=== PATIENT | male | born 1950 | race Hispanic/Latino ===

== ENCOUNTER 2021-08-24 13:58 | Inpatient (IN) | payer OTHER ==
[~2021-08-24] VITALS: Ht 170.2 cm; Wt 105.7 kg
[2021-08-24 14:47] LABS: BASOPHILS % (AUTO) 0.6 % (0.0-5.0); EOSINOPHILS % (AUTO) 1.3 % (0.0-8.0); HEMATOCRIT 40.4 % (42-54); LYMPHOCYTES % (AUTO) 14.1 % (21.0-51.0); MEAN CORPUSCULAR HEMOGLOBIN 33.6 pg (27.0-33.0); MEAN CORPUSCULAR HGB CONC 35.4 g/dL (32.0-36.0); MEAN CORPUSCULAR VOLUME 95.1 fL (79-99); MONOCYTES % (AUTO) 10.4 % (3.0-13.0); PLATELET COUNT (AUTO) 93 K/uL (130-400); RED BLOOD CELL COUNT(AUTO) 4.25 MIL/uL (4.50-6.20); RED CELL DISTRIBUTION WIDTH 12.4 % (11.0-15.5); WHITE BLOOD COUNT (AUTO) 5.4 K/uL (4.8-10.8)
[2021-08-24 14:53] LABS: APPEARANCE,URINE Clear (CLEAR); BILIRUBIN,URINE Negative (NEGATIVE); COLOR,URINE Yellow (YELLOW); GLUCOSE, URINE (UA) Negative (NEGATIVE); KETONES,URINE Trace mg/dL (NEGATIVE); LEUKOCYTE ESTERASE ,URINE Trace (NEGATIVE); NITRATE,URINE Negative (NEGATIVE); OCCULT BLOOD,URINE Negative (NEGATIVE); PROTEIN,URINE POS 1+ mg/dL (NEGATIVE)
[2021-08-24 15:02] LABS: BACTERIA,URINE Rare /HPF (None Seen); RBC,URINE 0-1 /HPF (0-1); SQUAMOUS EPITHELIAL CELL,UR Rare /HPF (0-2); WBC,URINE 0-1 /HPF (0-1)
[2021-08-24 15:15] LABS: POTASSIUM 4.4 mmol/L (3.5-5.1)
[2021-08-24 15:20] LABS: BILIRUBIN,TOTAL 2.3 mg/dL (0.2-1.0); TOTAL PROTEIN, SERUM 8.5 g/dL (6.0-8.3)
[2021-08-24] MEDS ORDERED: MORPHINE 2 MG SYG IV PRN (19:30)
[2021-08-24] MEDS ORDERED: ACETAMINOPHEN 325 MG TAB PO PRN ×2 (19:30)
[2021-08-24] MEDS ORDERED: HYDROMORPHONE 0.5 MG SYG (0.5MG/0.5ML) IV PRN (19:30)
[2021-08-24] MEDS ORDERED: ONDANSETRON 4MG INJ IV PRN (19:30)
[2021-08-24 20:02] LABS: HEMOGLOBIN A1C 6.7 % (4.0-6.0)
[2021-08-24] MEDS: ZOSYN 3.375GM +NS 50ML IV SCH ×2 (21:10→22:11)
[2021-08-24] MEDS: LORAZEPAM 2 MG/ML 1 ML VIAL IVP PRN (21:26)
[2021-08-24] MEDS: PANTOPRAZOLE 40 MG/VIAL IVP SCH (22:11)
[2021-08-24] MEDS: FAMOTIDINE 20MG VIAL IV SCH (22:11)
[2021-08-25] MEDS: LORAZEPAM 2 MG/ML 1 ML VIAL IVP PRN ×2 (00:56→09:18)
[2021-08-25 01:16] VITALS: BP 131/80
[2021-08-25 04:00] VITALS: BP 118/76
[2021-08-25] MEDS: ZOSYN 3.375GM +NS 50ML IV SCH (04:19)
[2021-08-25] MEDS ORDERED: CEFTRIAXONE 1G VIAL IVP SCH (06:00)
[2021-08-25 06:12] LABS: BASOPHILS % (AUTO) 0.5 % (0.0-5.0); EOSINOPHILS % (AUTO) 2.3 % (0.0-8.0); HEMATOCRIT 37.4 % (42-54); LYMPHOCYTES % (AUTO) 19.6 % (21.0-51.0); MEAN CORPUSCULAR HEMOGLOBIN 32.9 pg (27.0-33.0); MEAN CORPUSCULAR HGB CONC 34.5 g/dL (32.0-36.0); MEAN CORPUSCULAR VOLUME 95.4 fL (79-99); MONOCYTES % (AUTO) 12.4 % (3.0-13.0); NEUTROPHILS % (AUTO) 64.7 % (40.0-77.0); PLATELET COUNT (AUTO) 83 K/uL (130-400); RED BLOOD CELL COUNT(AUTO) 3.92 MIL/uL (4.50-6.20); RED CELL DISTRIBUTION WIDTH 12.5 % (11.0-15.5); WHITE BLOOD COUNT (AUTO) 4.4 K/uL (4.8-10.8)
[2021-08-25] MEDS ORDERED: 0.9%NACL 1000ML 1,000 ML IV SCH (06:30)
[2021-08-25 06:33] LABS: ALBUMIN 3.3 g/dL (3.5-5.0); BILIRUBIN,TOTAL 2.2 mg/dL (0.2-1.0); POTASSIUM 3.8 mmol/L (3.5-5.1); TOTAL PROTEIN, SERUM 7.2 g/dL (6.0-8.3)
[2021-08-25 07:27] LABS: ERYTHROCYTE SEDIMENTATION RATE 38 MM/HR (0-20)
[2021-08-25 08:00] VITALS: BP 120/74
[2021-08-25] MEDS: PANTOPRAZOLE 40 MG/VIAL IVP SCH (09:06)
[2021-08-25] MEDS: FAMOTIDINE 20MG VIAL IV SCH (09:06)
[2021-08-25 11:35] VITALS: BP 114/76
[2021-08-25] MEDS: INSULIN HUMULIN R 100 UNIT/ML 3ML SQ SCH ×2 (12:00→18:00)
[2021-08-25 16:00] VITALS: BP 133/80
== END 2021-08-25 19:34 | disposition home or self-care (01) | DRG 392 ==
LOC: EDH 13:58 → EDHIP 18:30 → 3DH 08-25 01:16
PROVIDERS: ADMIT Hospitalist; ATTEND Hospitalist
DX: K22.2 Esophageal obstruction (principal); N39.0 Urinary tract infection, site not specified; E44.1 Mild protein-calorie malnutrition; E11.9 Type 2 diabetes mellitus without complications; I10 Essential (primary) hypertension; K74.60 Unspecified cirrhosis of liver; E66.9 Obesity, unspecified; N40.0 Benign prostatic hyperplasia without lower urinary tract symptoms; E78.5 Hyperlipidemia, unspecified; F17.200 Nicotine dependence, unspecified, uncomplicated; N32.81 Overactive bladder; Z68.36 Body mass index [BMI] 36.0-36.9, adult
CPT/HCPCS: 36415; 71045; 71250; 74177; 74240; 80053; 81001; 82948; 83036; 85025; 85651; 87088; 92610; C9113; G0378; J0696; J2060; J2543; J3490

== ENCOUNTER → 2024-01-01 | Outpatient (CLI) | payer OTHER | END | disposition home or self-care (01) | LOC: RAH 10:12 | PROVIDERS: ATTEND Internal Medicine Medical Oncology | DX: K76.0 Fatty (change of) liver, not elsewhere classified (principal); K80.20 Calculus of gallbladder without cholecystitis without obstruction; N28.1 Cyst of kidney, acquired; D69.6 Thrombocytopenia, unspecified | CPT/HCPCS: 76700 ==